=== PATIENT | female | born 1955 | race Caucasian/White ===

== ENCOUNTER 2022-03-09 09:43 | Outpatient (CLI) | payer MEDICARE, OTHER ==
[2022-03-09] MEDS ORDERED: Iopamidol 300 61% 100 ML VIAL FS ONE (12:28)
== END 2022-03-09 09:44 | disposition home or self-care (01) ==
LOC: CSHCT 09:43
PROVIDERS: ATTEND Internal Medicine
DX: K63.89 Other specified diseases of intestine (principal); R91.8 Other nonspecific abnormal finding of lung field
CPT/HCPCS: 71260; 74177; 82565; Q9967

== ENCOUNTER 2022-04-17 10:24 | Outpatient (CLI) | payer MEDICARE, OTHER | END 2022-04-17 10:25 | disposition home or self-care (01) | LOC: CSHMAMMO 10:24 | PROVIDERS: ATTEND Internal Medicine | DX: Z12.31 Encounter for screening mammogram for malignant neoplasm of breast (principal); Z80.3 Family history of malignant neoplasm of breast | CPT/HCPCS: 77063; 77067 ==

== ENCOUNTER 2022-10-22 09:30 | Outpatient (CLI) | payer MEDICARE | END 2022-10-22 09:31 | disposition home or self-care (01) | LOC: CSHCT 09:30 | PROVIDERS: ATTEND Internal Medicine Hematology & Oncology | DX: R91.1 Solitary pulmonary nodule (principal); C18.9 Malignant neoplasm of colon, unspecified | CPT/HCPCS: 71260; 82565 ==

== ENCOUNTER 2023-04-19 09:52 | Outpatient (CLI) | payer MEDICARE | END 2023-04-19 09:53 | disposition home or self-care (01) | LOC: CSHMAMMO 09:52 | PROVIDERS: ATTEND Internal Medicine | DX: Z12.31 Encounter for screening mammogram for malignant neoplasm of breast (principal); Z80.3 Family history of malignant neoplasm of breast | CPT/HCPCS: 77063; 77067 ==

== ENCOUNTER 2024-05-12 11:13 | Outpatient (CLI) | payer MEDICARE | END 2024-05-12 11:14 | disposition home or self-care (01) | LOC: CSHMAMMO 11:13 | PROVIDERS: ATTEND Internal Medicine | DX: Z12.31 Encounter for screening mammogram for malignant neoplasm of breast (principal); N63.15 Unspecified lump in the right breast, overlapping quadrants; Z80.3 Family history of malignant neoplasm of breast; Z85.038 Personal history of other malignant neoplasm of large intestine | CPT/HCPCS: 77063; 77067 ==

== ENCOUNTER 2024-05-22 08:34 | Outpatient (CLI) | payer MEDICARE | END 2024-05-22 08:35 | disposition home or self-care (01) | LOC: CSHMAMMO 08:34 | PROVIDERS: ATTEND Internal Medicine | DX: N63.10 Unspecified lump in the right breast, unspecified quadrant (principal); N60.01 Solitary cyst of right breast | CPT/HCPCS: 76642; 77065; G0279 ==